=== PATIENT | male | born 1965 | race Caucasian/White ===

== ENCOUNTER 2017-03-12 16:09 | Emergency (ER) | payer OTHER ==
[~2017-03-12 16:09] MED LIST: AMB5 PO; ATI0.5 PO; COG1 PO; DIL100 PO; ESCITALOPRAM PO; FER300 PO; INS7030 SC; KLO1 PO; L20 PO; LOP50 PO; LYRICA PO; MSC15 PO; PRI20; SYN25 PO; TOP100 PO; TRA50 PO; VIA PO; XOP1.25 INH; [UNRECOGNIZED DRUG - OTHER] PO; [UNRECOGNIZED DRUG - OTHER] PO
[2017-03-12 18:55] VITALS: BP 110/54
== END 2017-03-12 18:55 | disposition home or self-care (01) ==
LOC: ED 16:09
DX: G89.29 Other chronic pain (principal); M54.5 Low back pain; I10 Essential (primary) hypertension; E11.9 Type 2 diabetes mellitus without complications; M79.7 Fibromyalgia; Z88.5 Allergy status to narcotic agent; Z88.8 Allergy status to other drugs, medicaments and biological substances
CPT/HCPCS: J1170; Q0162

== ENCOUNTER 2018-04-14 20:13 | Emergency (ER) | payer OTHER ==
[~2018-04-14] VITALS: Ht 170.2 cm; Wt 90.7 kg
[2018-04-14 20:18] VITALS: Ht 170.2 cm; Wt 90.7 kg
[2018-04-14 21:03] LABS: BASOPHIL % 0.3 % (0-2); PLATELET COUNT 181 x10^3mcL (130-400); RED CELL DISTRIBUTION WIDTH 13.9 % (11.5-14.5)
[2018-04-14 21:13] LABS: CALCIUM 8.5 mg/dL (8.5-10.1); CARBON DIOXIDE 23.4 mmol/L (21-32); CHLORIDE SERUM 101 mmol/L (98-107); CREATININE SERUM 1.6 mg/dL (0.7-1.3); GFR1 48 mL/min; GLUCOSE SERUM 229 mg/dL (74-106); POTASSIUM SERUM 4.3 mmol/L (3.5-5.1); SODIUM SERUM 135 mmol/L (136-145)
[2018-04-14 21:18] LABS: ALBUMIN 3.4 g/dL (3.4-5.0); ALKALINE PHOSPHATASE 150 U/L (46-116); ALT/SGPT 17 U/L (16-63); AST/SGOT 15 U/L (15-37); BILIRUBIN TOTAL 0.3 mg/dL (0.20-1.00); CHOLESTEROL 138 mg/dL (<200); TOTAL PROTEIN, SERUM 7.1 g/dL (6.4-8.2)
[2018-04-15 00:20] VITALS: BP 100/58
== END 2018-04-15 00:20 | disposition short-term general hospital (02) ==
LOC: ED 20:13
PROVIDERS: Emergency Medicine
DX: S06.5X9A Traumatic subdural hemorrhage with loss of consciousness of unspecified duration, initial encounter (principal); M32.9 Systemic lupus erythematosus, unspecified; M79.7 Fibromyalgia; E11.9 Type 2 diabetes mellitus without complications; R56.9 Unspecified convulsions; Z88.5 Allergy status to narcotic agent; Z86.2 Personal history of diseases of the blood and blood-forming organs and certain disorders involving the immune mechanism; Z90.89 Acquired absence of other organs; Z90.49 Acquired absence of other specified parts of digestive tract; W18.30XA Fall on same level, unspecified, initial encounter; Y93.89 Activity, other specified; Y92.89 Other specified places as the place of occurrence of the external cause; Y99.8 Other external cause status
CPT/HCPCS: 82962; G0480; J1200; J7030; Q0092

== ENCOUNTER 2019-04-23 11:31 | Inpatient (IN) | payer OTHER ==
[~2019-04-23] VITALS: Ht 170.2 cm; Wt 99.8 kg
[2019-04-23 11:36] VITALS: Ht 170.2 cm; Wt 99.8 kg
[2019-04-23 12:30] LABS: BASOPHIL % 0.4 % (0-2); PLATELET COUNT 235 x10^3mcL (130-400); RED CELL DISTRIBUTION WIDTH 13.6 % (11.5-14.5)
[2019-04-23 13:09] LABS: CARBON DIOXIDE 22.2 mmol/L (21-32); CHLORIDE SERUM 95 mmol/L (98-107); CREATININE SERUM 1.3 mg/dL (0.7-1.3); GFR1 > 60 mL/min; GLUCOSE SERUM 378 mg/dL (74-106); POTASSIUM SERUM 4.6 mmol/L (3.5-5.1); SODIUM SERUM 134 mmol/L (136-145); TOTAL PROTEIN, SERUM 8.1 g/dL (6.4-8.2)
[2019-04-23 13:10] LABS: ALBUMIN 3.9 g/dL (3.4-5.0); ALKALINE PHOSPHATASE 313 U/L (46-116); ALT/SGPT 19 U/L (16-63); AST/SGOT 12 U/L (15-37); CALCIUM 9.7 mg/dL (8.5-10.1)
[2019-04-23 17:47] LABS: microscopic required? YES; urine erythrocyte NEGATIVE (NEGATIVE)
[2019-04-23 18:27] VITALS: BP 152/88
[2019-04-23 18:50] LABS: AMPHETAMINE QUAL UR POSITIVE (See below)
[2019-04-23 22:06] VITALS: BP 118/74
[2019-04-24 06:02] VITALS: BP 113/68
[2019-04-24 07:04] LABS: BASOPHIL % 0.4 % (0-2); PLATELET COUNT 188 x10^3mcL (130-400); RED CELL DISTRIBUTION WIDTH 13.5 % (11.5-14.5)
[2019-04-24 07:05] LABS: CARBON DIOXIDE 25.1 mmol/L (21-32); CHLORIDE SERUM 102 mmol/L (98-107); POTASSIUM SERUM 3.6 mmol/L (3.5-5.1); SODIUM SERUM 138 mmol/L (136-145)
[2019-04-24 07:52] LABS: CALCIUM 8.6 mg/dL (8.5-10.1); GFR1 > 60 mL/min; GLUCOSE SERUM 210 mg/dL (74-106); MAGNESIUM 1.9 mg/dL (1.8-2.4); PHOSPHOROUS 3.4 mg/dL (2.5-4.9)
[2019-04-24 08:55] VITALS: BP 104/69
[2019-04-24 13:22] VITALS: BP 100/60
[2019-04-24 16:28] VITALS: BP 102/76
[2019-04-24 20:17] VITALS: BP 98/66
[2019-04-25 05:27] VITALS: BP 104/67
[2019-04-25 09:16] VITALS: BP 107/68
[2019-04-25 13:39] VITALS: BP 107/68
[2019-04-25 13:44] VITALS: BP 131/75
== END 2019-04-25 17:10 | disposition home or self-care (01) | DRG 140 ==
LOC: ED 11:31 → DU 16:06
PROVIDERS: Student in an Organized Health Care Education/Training Program; ADMIT Internal Medicine
DX: J44.1 Chronic obstructive pulmonary disease with (acute) exacerbation (principal); I62.03 Nontraumatic chronic subdural hemorrhage; E87.3 Alkalosis; E87.8 Other disorders of electrolyte and fluid balance, not elsewhere classified; M32.9 Systemic lupus erythematosus, unspecified; E11.65 Type 2 diabetes mellitus with hyperglycemia; E87.1 Hypo-osmolality and hyponatremia; F15.93 Other stimulant use, unspecified with withdrawal; K21.9 Gastro-esophageal reflux disease without esophagitis; F32.9 Major depressive disorder, single episode, unspecified; F41.9 Anxiety disorder, unspecified; E80.6 Other disorders of bilirubin metabolism; I10 Essential (primary) hypertension; M79.7 Fibromyalgia; I25.2 Old myocardial infarction; Z68.34 Body mass index [BMI] 34.0-34.9, adult; Z86.73 Personal history of transient ischemic attack (TIA), and cerebral infarction without residual deficits; Z88.5 Allergy status to narcotic agent; Z91.041 Radiographic dye allergy status; Z87.891 Personal history of nicotine dependence; Z79.4 Long term (current) use of insulin; Z79.899 Other long term (current) drug therapy
CPT/HCPCS: 82962; 83880; 85378; 87804; 90658; 97116-GP; G0378; J0456; J0696; J1815; J2060; J2270; J7030; J7613; J7620; Q0092

== ENCOUNTER 2019-08-19 12:59 | Emergency (ER) | payer OTHER, SELFPAY ==
[~2019-08-19] VITALS: Ht 170.2 cm; Wt 106.6 kg
[2019-08-19 13:31] VITALS: Ht 170.2 cm; Wt 106.6 kg
[2019-08-19 14:19] LABS: UA SPECIFIC GRAVITY 1.025 (1.005-1.035); microscopic required? YES; urine erythrocyte NEGATIVE (NEGATIVE)
[2019-08-19 14:50] LABS: CALCIUM 8.4 mg/dL (8.5-10.1); CARBON DIOXIDE 26.6 mmol/L (21-32); CHLORIDE SERUM 107 mmol/L (98-107); CREATININE SERUM 1.1 mg/dL (0.7-1.3); GFR1 > 60 mL/min; GLUCOSE SERUM 179 mg/dL (74-106); POTASSIUM SERUM 3.6 mmol/L (3.5-5.1); SODIUM SERUM 142 mmol/L (136-145)
[2019-08-19 14:54] LABS: ALKALINE PHOSPHATASE 315 U/L (46-116); ALT/SGPT 16 U/L (16-63); AST/SGOT 8 U/L (15-37); BILIRUBIN TOTAL 0.6 mg/dL (0.20-1.00); MAGNESIUM 1.9 mg/dL (1.8-2.4); TOTAL PROTEIN, SERUM 6.5 g/dL (6.4-8.2)
[2019-08-19 14:59] LABS: BASOPHIL % 0.6 % (0-2); PLATELET COUNT 155 x10^3mcL (130-400); RED CELL DISTRIBUTION WIDTH 13.3 % (11.5-14.5)
[2019-08-19 14:59] LABS: ALBUMIN 3.1 g/dL (3.4-5.0)
[2019-08-19 17:27] VITALS: BP 128/62
== END 2019-08-19 17:27 | disposition home or self-care (01) ==
LOC: ED 12:59
PROVIDERS: Emergency Medicine
DX: M25.50 Pain in unspecified joint (principal); M79.10 Myalgia, unspecified site; R06.02 Shortness of breath; I50.9 Heart failure, unspecified; I10 Essential (primary) hypertension; E11.9 Type 2 diabetes mellitus without complications; M32.9 Systemic lupus erythematosus, unspecified; I25.2 Old myocardial infarction; Z88.5 Allergy status to narcotic agent; Z90.49 Acquired absence of other specified parts of digestive tract; Z88.8 Allergy status to other drugs, medicaments and biological substances
CPT/HCPCS: 82962; 83880; 87804; J2270; J2405; Q0092